=== PATIENT | male | born 2000 | race Hispanic/Latino ===

== ENCOUNTER 2018-12-13 12:24 | Emergency (ER) | payer MEDICAID, OTHER ==
[2018-12-13] MEDS ORDERED: DEXAMETHASONE SOD PHOSPHATE 10MG/ML 1ML VIAL ONE (13:16)
[2018-12-13] MEDS ORDERED: IPRATROPIUM/ALBUTEROL SULFATE 3 ML SOLUTION IH ONE (13:23)
[2018-12-13] MEDS ORDERED: ACETAMINOPHEN 325 MG TAB ONE (13:47)
== END 2018-12-13 13:51 | disposition home or self-care (01) ==
LOC: EDH 12:24
DX: J45.21 Mild intermittent asthma with (acute) exacerbation (principal); G43.909 Migraine, unspecified, not intractable, without status migrainosus; F12.90 Cannabis use, unspecified, uncomplicated; Z90.49 Acquired absence of other specified parts of digestive tract; Z72.0 Tobacco use
CPT/HCPCS: 71045; 94640; 96372; 99283; J1100